=== PATIENT | female | born 1985 | race Caucasian/White ===

== ENCOUNTER 2016-08-19 15:56 | Outpatient (CLI) | payer OTHER ==
[~2016-08-19] VITALS: Ht 160 cm; Wt 70.0 kg
[~2016-08-19 15:56] MED LIST: CEPH-443 PO; PREN-39
[2016-08-19 16:01] VITALS: Ht 160 cm; Wt 70.0 kg
[2016-08-19 16:02] VITALS: BP 111/73; PULSE 90; RESP 18
--- NOTE | 2016-08-19 16:53 | RADRPT ---
PROCEDURE: US OB biophysical profile. CLINICAL INDICATION: decreased movements, tachycardia TECHNIQUE: Multiple sonographic images of the pelvis were obtained. The images were reviewed on a PACS workstation. COMPARISON: None FINDINGS: There is a single viable intrauterine gestation. Cardiac activity is present with 140 beats per min jessica. There is a vertex presentation. The placenta is posterior. There is no evidence of placental abruption. There is a normal amount of amniotic fluid with an CATALINA = 15.5 cm. Biophysical profile: movement 2/2 tone 2/2. breathing 2/2 CATALINA 2/2 Total 01/20 RPTAT: AA . IMPRESSION: Normal biophysical profile. . .Liu Gaming MD, MD Date Time Electronically viewed and signed by .Liu Gaming MD, MD on 08/19/2016 16:52 .S/
--- NOTE | 2016-08-19 17:14 | CONS ---
Date/Time of Note Date/Time of Note DATE: 08/19/16 TIME: 17:07 Consultation Date/Type/Reason Admit Date/Time Initial Consult Date 24 HR Interval Summary Free Text/Dictation August 19, 2016 OB triage consult This patient is 30 years old 5 para 2 2 living 2 who both her deliveries had by section. Her due date is September 02, 2016 which makes her 38 weeks and 0 days now She was sent due to tachycardia to be evaluated for possible distress On examination generally the patient is normal: her ear nose throat neck chest heart extremity all within normal limits Abdomen: is soft she has occasional contraction Her vital signs are within normal limits Blood pressure 111/73 pulse rate 90 respiration 18 temperature 98 point Monitoring : heart tracing is reactive with fairly good accelerations and variability and no decelerations Her biophysical profile was reported 8 of 8 her amniotic fluid index was 15.5 cm Detailed Summary Eyes: No discharge, No no complaints, No other, No pain, No redness, No visual change ENT: No bleeding, No congestion, No discharge, No dysphagia, No no complaints, No other, No pain, No sore throat Respiratory: No cough, No no complaints, No other, No pain, No pleuritic pain, No shortness of breath, No sputum, No wheezing Cardiovascular: No chest pain, No edema, No lightheadedness, No no complaints, No orthopenea, No other, No palpitations, No paroxysmal nocturnal dyspnea Gastrointestinal: No blood, No constipation, No decreased appetite, No diarrhea , No flatus, No nausea, No no complaints, No other, No pain, No passing stool, No vomiting Genitourinary: other (No vaginal discharge no bleeding), No bleeding, No discharge, No dysuria, No flank pain, No hematuria, No no complaints Musculoskeletal: No back pain, No bone/joint pain, No neck pain, No no complaints, No other, No restricted range of motion, No swelling Skin: No bruising, No erythema, No laceration, No no complaints, No other, No pruritis, No rash, No skin lesions Neurologic: other (Knee-jerk reflex are normal), No confusion, No dizziness, No focal-weakness, No headache, No no complaints , No seizure, No syncope Endocrine: No dry skin, No no complaints, No other, No polydypsia, No polyuria , No temp intolerance Lymphatic: No adenopathy, No lymphadema, No no complaints, No other, No tender nodes Additional Comments With these positive findings patient was discharged home to be seen in the office in 3 days and to repeat her NST in 3 days Exam/Review of Systems Vital Signs Vitals Vital Signs Date Time Temp Pulse Resp B/P Pulse Ox O2 Delivery O2 Flow Rate FiO2 08/19/16 16:02 98.4 90 18 111/73 HAYES CASTANO MD Aug 19, 2016 17:14 HAYES CASTANO MD Aug 19, 2016 17:14
--- NOTE | 2016-08-19 18:23 | TRIAGE ---
OB Triage Datetime Report Generated by CPN: 08/19/2016 18:23 Datetime: 08/19/2016 16:56 Maternal Assessment Level of Consciousness: Fully Conscious DTR's/Clonus: DTRs 1+ Headache: Denies Breath Sounds, Left: Clear and Equal Breath Sounds, Right: Clear and Equal Nausea/Vomiting: Denies RUQ Epigastric Pain: Denies Labor Evaluation Frequency: 145 Monitor Mode: External Duration (sec)2399: 40-50 Quality: Mild Pattern: Normal: <= 5 Contractions in 10 Minutes Resting Tone [place]: Relaxed Heart Rate FHR Baseline Rate: 140 Monitor Mode: External US Variability: Moderate 6-25 bpm Accelerations: 15X15 Decelerations: None Category: Category I Pain Assessment Pain Scale: 0 Pain Presence: None/Denies Pain Type: N/A Pain Goal: 3 Vaginal Exam Membrane Status: Intact Datetime: 08/19/2016 16:14 Maternal Assessment Level of Consciousness: Fully Conscious DTR's/Clonus: DTRs 1+ Headache: Denies Blurred Vision: No Respiratory Effort: Unlabored Breath Sounds, Left: Clear and Equal Breath Sounds, Right: Clear and Equal Nausea/Vomiting: Denies RUQ Epigastric Pain: Denies Facial Edema: None Labor Evaluation Frequency: NONE Resting Tone [place]: Relaxed Heart Rate FHR Baseline Rate: 140 Monitor Mode: External US Variability: Moderate 6-25 bpm Accelerations: 15X15 Decelerations: None Category: Category I Pain Assessment Pain Scale: 0 Pain Presence: None/Denies Pain Type: N/A Pain Goal: 3 Vaginal Exam Membrane Status: Intact Datetime: 08/19/2016 16:06 Stage of : OB Triage EGA: 38.0 Maternal Assessment Level of Consciousness: Fully Conscious DTR's/Clonus: DTRs 2+; No Clonus Headache: Denies Blurred Vision: No Respiratory Effort: Unlabored; Regular Rhythm; Equal Expansion Breath Sounds, Left: Clear and Equal Breath Sounds, Right: Clear and Equal Nausea/Vomiting: Denies RUQ Epigastric Pain: Denies Lower Extremities Edema: None Degree: None Upper Extremities Edema: None Degree: None Facial Edema: None Temperature Route: Axillary Fall Risk Assessment History of Falling: (0) No Secondary Diagnosis: (0) No Ambulatory Aid: (0) Bedrest/Nurse Assist IV Therapy: (0) No Gait: (0) Normal/Bedrest/Immobile Mental Status: (0) Oriented to Own Ability Fall Score: 0 Fall Risk Score Definition: No Risk: No action required Datetime: 08/19/2016 15:52 Time of Arrival: 08/19/2016 15:52 Arrived By: Ambulatory Arrived From: Office Chief Complaint: PT CAME IN FROM [facility] OFFICE TO BE MONITOR FOR TACHYCARDIA Movement: Present Contractions: Denies/Absent Rupture of Membranes: Denies Vaginal Discharge: Denies Recent Sexual Intercouse: Denies Abdominal Trauma: Not Applicable Additional Patient Complaints: NONE Time Provider Notified: 08/19/2016 16:00 Provider Notified: MARISA Initial Plan: NST AND BPKamar
== END 2016-08-19 17:05 | disposition home or self-care (01) ==
LOC: OBT 15:56 → L-D 15:56 → OBT 17:05
PROVIDERS: ATTEND Obstetrics & Gynecology
DX: O47.1 False labor at or after 37 completed weeks of gestation (principal); Z3A.38 38 weeks gestation of pregnancy
CPT/HCPCS: 76818; Z7500; G0463

== ENCOUNTER 2016-09-01 19:31 | Inpatient (IN) | payer OTHER ==
[~2016-09-01] VITALS: Ht 162.6 cm; Wt 73.9 kg
[~2016-09-01 19:31] MED LIST changes: -CEPH-443 PO
[2016-09-01 19:57] VITALS: Ht 162.6 cm; Wt 73.9 kg
[2016-09-01 19:58] VITALS: BP 103/67; PULSE 81; RESP 16
[2016-09-01] MEDS ORDERED: FOLI-49 PO (19:58)
[2016-09-01] MEDS ORDERED: AMPICILLIN 2 GM/NS (PMX) 100 ML IVPB ONE (20:30)
[2016-09-01] MEDS: LACTATED RINGER'S 1,000 ML IV SCH (20:34)
[2016-09-01] MEDS ORDERED: OXYTOCIN 30 UNITS/LR 500 ML IV PRN (21:00)
[2016-09-01] MEDS ORDERED: OXYTOCIN 30 UNITS/LR 500 ML IV SCH (21:00)
[2016-09-01] MEDS ORDERED: CARBOPROST 250 MCG INJ IM PRN (21:00)
[2016-09-01] MEDS ORDERED: MISOPROSTOL 200 MCG TAB PR PRN (21:00)
[2016-09-01] MEDS ORDERED: METHYLERGONOVINE 0.2 MG INJ IM PRN (21:00)
[2016-09-01] MEDS ORDERED: CEFAZOLIN 2 GM/50 ML (PMX) 50 ML IV SCH (21:00)
[2016-09-01 21:14] LABS: ADD SCAN DIFF NO
[2016-09-01 21:16] LABS: BASOPHILS % 0.3 % (0.0-2.0); EOSINOPHILS # 0.4 10^3/ul (0.0-0.5); EOSINOPHILS % 5.2 % (0.0-7.0); HEMATOCRIT 34.6 % (37.0-47.0); HEMOGLOBIN 11.3 g/dl (12.0-16.0); LYMPHOCYTES # 1.5 10^3/ul (0.8-2.9); LYMPHOCYTES % 20.4 % (15.0-51.0); MEAN CORPUSCULAR HEMOGLOBIN 29.1 pg (29.0-33.0); MEAN CORPUSCULAR HGB CONC 32.7 g/dl (32.0-37.0); MEAN CORPUSCULAR VOLUME 89.2 fl (82.0-101.0); MEAN PLATELET VOLUME 11.4 fl (7.4-10.4); MONOCYTE # 0.8 10^3/ul (0.3-0.9); MONOCYTES % 11.2 % (0.0-11.0); NEUTROPHIL # 4.6 10^3/ul (1.6-7.5); NEUTROPHILS % 62.5 % (39.0-77.0); PLATELET COUNT 227 10^3/UL (140-415); RED BLOOD COUNT 3.88 10^6/ul (4.20-5.40); RED CELL DISTRIBUTION WIDTH 13.2 % (11.5-14.5); WHITE BLOOD COUNT 7.3 10^3/ul (4.8-10.8)
[2016-09-01 21:19] LABS: INR 0.92; PROTIME 12.4 Sec (12.2-14.2)
[2016-09-01 21:20] LABS: PARTIAL THROMBOPLASTIN TIME 26.1 Sec (25.0-35.0)
--- NOTE | 2016-09-01 21:59 | RADRPT ---
PROCEDURE: OB ultrasound for biophysical profile CLINICAL INDICATION: Biophysical profile. . TECHNIQUE: Multiple sonographic images of the pelvis were obtained. Transabdominal view of the gr avid uterus are available for review. The images were reviewed on a PACS workstation. COMPARISON: 08/19/2016 FINDINGS: Single intrauterine gestation. Presentation: Oblique breech maternal right. Partially visualized placenta: Posterior breathing movement = 2/2 tone = 2/2 motion = 2/2 CATALINA = 2/2 CATALINA = 18.3 cm heart rate: 146 beats per minute IMPRESSION: Single intrauterine gestation. Biophysical profile 01/20 Oblique of breech presentation. RPTAT: AADD .Reji Ibarra MD, MD Date Time Electronically viewed and signed by .Reji Ibarra MD, on 09/01/2016 21:58 .B/
--- NOTE | 2016-09-01 22:21 | TRIAGE ---
OB Triage Datetime Report Generated by CPN: 09/01/2016 22:21 Datetime: 09/01/2016 21:41 Stage of : Labor Assessment Type: Admission Assessment Vaginal Bleeding: None Maternal Assessment Level of Consciousness: Fully Conscious DTR's/Clonus: DTRs 2+; No Clonus Headache: Denies Blurred Vision: No Respiratory Effort: Unlabored; Regular Rhythm; Equal Expansion Breath Sounds, Left: Clear and Equal Breath Sounds, Right: Clear and Equal Nausea/Vomiting: Denies RUQ Epigastric Pain: Denies Lower Extremities Edema: None Degree: None Upper Extremities Edema: None Degree: None Facial Edema: None Fall Risk Assessment History of Falling: (0) No Secondary Diagnosis: (0) No Ambulatory Aid: (0) Bedrest/Nurse Assist IV Therapy: (20) Yes Gait: (0) Normal/Bedrest/Immobile Mental Status: (0) Oriented to Own Ability Fall Score: 20 Fall Risk Score Definition: No Risk: No action required Labor Evaluation Frequency: 0 Resting Tone [place]: Relaxed Heart Rate FHR Baseline Rate: 135 Variability: Moderate 6-25 bpm Accelerations: 15X15 Decelerations: None Category: Category I Pain Assessment Pain Scale: 1 Pain Presence: Intermittent Pain Type: Cramping Pain Location: Abdomen Pain Goal: 0 Datetime: 09/01/2016 20:49 Comments: DR MARISA AT BEDSIDE. Datetime: 09/01/2016 20:47 Comments: US TECH AT BEDSIDE FOR PRESENTATION. Datetime: 09/01/2016 20:37 Stage of : OB Triage Datetime: 09/01/2016 20:25 Stage of : OB Triage Datetime: 09/01/2016 19:50 Vaginal Exam Dilatation (cms): 1.5 Effacement (%): 60 Station: -4 Exam By: ADRIANA VIDAL Vaginal Bleeding: None Cervix, Consistency: Soft Cervix, Position: Posterior Presentation 'A': Unable to Assess Datetime: 09/01/2016 19:41 Assessment Type: Triage Maternal Assessment Level of Consciousness: Fully Conscious Headache: Denies Blurred Vision: No Respiratory Effort: Unlabored; Regular Rhythm; Equal Expansion Nausea/Vomiting: Denies RUQ Epigastric Pain: Denies Facial Edema: None Fall Risk Assessment History of Falling: (0) No Secondary Diagnosis: (0) No Ambulatory Aid: (0) Bedrest/Nurse Assist IV Therapy: (0) No Gait: (0) Normal/Bedrest/Immobile Mental Status: (0) Oriented to Own Ability Fall Score: 0 Fall Risk Score Definition: No Risk: No action required Datetime: 09/01/2016 19:39 Time of Arrival: 09/01/2016 19:30 EGA: 39.6 Arrived By: Ambulatory Arrived From: Home Chief Complaint: UC'S SINCE 18:00 Movement: Present Contractions: Irregular Contractions: UNSURE Rupture of Membranes: Denies Vaginal Bleeding: None Vaginal Discharge: Present Recent Sexual Intercouse: Denies Abdominal Trauma: Not Applicable Patient Complaints: Contractions Time Provider Notified: 09/01/2016 19:55 Provider Notified: MARISA Initial Plan: EFM,SVE, CALL OB Datetime: 08/19/2016 16:06 EGA: 38.0 Fall Score: 0 Fall Risk Score Definition: No Risk: No action required
[2016-09-01] MEDS ORDERED: morphine SULFATE/PF (10 MG/10 ML) INJ ONE (22:47)
[2016-09-01] MEDS ORDERED: PHENYLephrine (100 MCG/ML) 5ML SYG ONE ×3 (22:49→23:35)
--- NOTE | 2016-09-01 23:00 | HP ---
Date/Time of Note Date/Time of Note DATE: 09/01/16 TIME: 22:53 OB - History Hx of Present Free Text/Dictation 30 y.o A2(sab) at 39w6d came in c/o uerine contractions known to be transverse lie which has been confirmed by u/s prepared for primary csarean sections Chief Complaint: uterine contractions Estimated Due Date: Sep 02, 2016 : 4 Para: 1 Spontaneous : 2 Therapeutic : 0 Care: Good Care Ultrasounds: Normal mid trimester US Obstetrical Complications: None Medical Complications: None Past Family/Social History * Past Medical, Surgical, Family and Obstetric Histories reviewed from chart. Blood Type: B+ Rubella: immune RPR/VDRL: Negative GBS Status: Positive HBsAG: Negative OB Admission Exam Vital Signs Vital Signs Vital Signs Date Time Temp Pulse Resp B/P Pulse Ox O2 Delivery O2 Flow Rate FiO2 09/01/16 19:58 98.0 81 16 103/67 Room Air Physical Exam HEENT: WNL Heart: Rhythm Normal Lungs: Clear, Equal Abdomen: WNL Extremities: Normal Reflexes: Normal Cervical Dilatation: 1cm Effacement: 25% Station: Ballotable Membranes: Intact Heart Rate: 140's Accelerations: Accelerations Present Decelerations: No Decelerations Varibility: Moderate Contractions on Admission: >10 Minutes Apart Intensity: Mild Last 72 hours Lab Results CBC & BMP 09/01/16 20:30 OB Assessment/Plan Reason for admission: other (malpresentation) Other Assessment: IUP 39w6d transverse lie in early labor Plan: Section JACLYN CUNNINGHAM MD Sep 01, 2016 23:00
[2016-09-01] MEDS ORDERED: ONDANSETRON 4 MG INJ ONE (23:03)
[2016-09-01] MEDS ORDERED: DIPHENHYDRAMINE 50 MG INJ IV PRN ×2 (23:30)
[2016-09-01] MEDS ORDERED: METOCLOPRAMIDE 10 MG INJ IV PRN (23:30)
[2016-09-01] MEDS ORDERED: FENTAnyl 50 MCG/ML VIAL IV PRN ×2 (23:30)
[2016-09-01] MEDS ORDERED: MEPERIDINE 25 MG INJ IV PRN (23:30)
[2016-09-01] MEDS ORDERED: ONDANSETRON 4 MG INJ IV PRN ×2 (23:30)
[2016-09-01] MEDS ORDERED: HYDROmorphONE 1 MG/ML SYG IV PRN ×2 (23:30)
[2016-09-01] MEDS ORDERED: morphine (1 MG/ML) 10ML SYRINGE IV PRN ×2 (23:30)
[2016-09-01] MEDS ORDERED: HYDROmorphONE (0.2 MG/ML) 10ML SYG IV PRN ×2 (23:30)
[2016-09-01] MEDS ORDERED: NALOXONE (0.4 MG/ML) INJ IV PRN (23:30)
[2016-09-02] MEDS: KETOROLAC 30 MG INJ IV PRN ×4 (01:20→18:34)
--- NOTE | 2016-09-02 02:39 | DELSUM ---
Delivery Summary A-C Datetime Report Generated by CPN: 09/02/2016 02:38 DELIVERY PERSONNEL Hand Binder Cutter: [place], Lorna Idalmis MATERNAL INFORMATION Delivery Anesthesia: Spinal Medications in Delivery: SEE ANESTHESIA Estimated Blood Loss (ml): 600 Placenta Cultured: No Maternal Complications: None LABOR SUMMARY EDC: 09/02/2016 00:00 No. Babies in Womb: 1 Attempted: No Labor Anesthesia: None LABOR INFORMATION Reason for Induction: Not Applicable Onset of Labor: 09/01/2016 17:00 Oxytocin: N/A Group B Beta Strep: Positive Group B Beta Strep: Positive Antibiotics # of Doses: 2 Antibiotics Time of Last Dose: 09/01/2016 23:00 Steroids Given: None Reason Steroids Not Administered: Not Applicable MEMBRANES Membranes Rupture Method: Artificial Rupture of Membranes: 09/01/2016 23:13 Length of Rupture (hr): 0.02 Amniotic Fluid Color: Clear Amniotic Fluid Amount: Moderate Amniotic Fluid Odor: Normal STAGES OF LABOR Stage 3 hr: 0 Stage 3 min: 1 Total Time in Labor hr: 6 Total Time in Labor min: 15 CSECTION DELIVERY Primary Indication: Breech Presentation CSection Urgency: Non Elective CSection Incidence: Primary Labor: Labor Elective: Nonelective CSection Incision: Lower Uterine Transverse BABY A INFORMATION Delivery Date/Time: 09/01/2016 23:14 Method of Delivery: Method of Delivery: Born in Route : No : N/A Forceps: N/A Vacuum Extraction: N/A Shoulder Dystocia : N/A SHOULDER DYSTOCIA BABY A Delivery Date/Time: 09/01/2016 23:14 PRESENTATION/POSITION BABY A Presentation: Breech Cephalic Presentation: N/A Breech Presentation: Double Footling PLACENTA INFORMATION BABY A Placenta Delivery Time : 09/01/2016 23:15 Placenta Method of Delivery: Manual Removal Placenta Status: Delivered SCORES BABY A Heart Rate 1 min: >100 bpm Resp Effort 1 min: Good Cry Reflex Irritability 1 min: Cough/Sneeze/Pulls Away Muscle Tone 1 min: Active Motion Color 1 min: Blue/Pale Resuscitation Effort 1 min: Tactile Stimulation SCORE 1 MIN: 8 Heart Rate 5 min: >100 bpm Resp Effort 5 min: Good Cry Reflex Irritability 5 min: Cough/Sneeze/Pulls Away Muscle Tone 5 min: Active Motion Color 5 min: Body [place], Extremit Blue Resuscitation Effort 5 min: Tactile Stimulation SCORE 5 MIN: 9 INFANT INFORMATION BABY A Gestational Age at Delivery: 39.6 Gestational Status: Full Term- 39- 40.6 Weeks Outcome : Liveborn Condition : Stable Infant Sex: Female IDENTIFICATION/MEDS BABY A ID Band Number: [id number] ID Band Location: Right Leg; Left Arm Sensor Applied: Yes Sensor Number: [id number] Sensor Location : Cord Clamp Vitamin K Given : Not Given Erythromycin Given: Not Given WEIGHT/LENGTH BABY A Infant Birthweight (gm): 3430 Weight (lb): 7 Infant Weight (oz): 9 Length (in): 20.00 Infant Length (cm): 50.80 CORD INFORMATION BABY A No. Cord Vessels: 3 Nuchal Cord : Around Neck x1, Loose Cord Blood Taken: Yes Infant Suction: Mouth; Nose ASSESSMENT BABY A Complications: None Physical Findings at Delivery: Within Normal Limits Infant Respirations: Appears Normal Instrument Repair Technician/ALS Called : No Care By: NICU Transferred To: Remains with Mother
--- NOTE | 2016-09-02 02:39 | DELSUM ---
Delivery Summary A-C Datetime Report Generated by CPN: 09/02/2016 02:39 DELIVERY PERSONNEL Hamper Maker: [place], Lorna Idalmis MATERNAL INFORMATION Delivery Anesthesia: Spinal Medications in Delivery: SEE ANESTHESIA Estimated Blood Loss (ml): 600 Placenta Cultured: No Maternal Complications: None LABOR SUMMARY EDC: 09/02/2016 00:00 No. Babies in Womb: 1 Attempted: No Labor Anesthesia: None LABOR INFORMATION Reason for Induction: Not Applicable Onset of Labor: 09/01/2016 17:00 Oxytocin: N/A Group B Beta Strep: Positive Group B Beta Strep: Positive Antibiotics # of Doses: 2 Antibiotics Time of Last Dose: 09/01/2016 23:00 Steroids Given: None Reason Steroids Not Administered: Not Applicable MEMBRANES Membranes Rupture Method: Artificial Rupture of Membranes: 09/01/2016 23:13 Amniotic Fluid Color: Clear Amniotic Fluid Amount: Moderate Amniotic Fluid Odor: Normal CSECTION DELIVERY Primary Indication: Breech Presentation CSection Urgency: Non Elective CSection Incidence: Primary Labor: Labor Elective: Nonelective CSection Incision: Lower Uterine Transverse BABY A INFORMATION Delivery Date/Time: 09/01/2016 23:14 Method of Delivery: Method of Delivery: Born in Route : No : N/A Forceps: N/A Vacuum Extraction: N/A Shoulder Dystocia : N/A SHOULDER DYSTOCIA BABY A Infant Delivery Date/Time: 09/01/2016 23:14 PRESENTATION/POSITION BABY A Presentation: Breech Cephalic Presentation: N/A Breech Presentation: Double Footling PLACENTA INFORMATION BABY A Placenta Delivery Time : 09/01/2016 23:15 Placenta Method of Delivery: Manual Removal Placenta Status: Delivered SCORES BABY A Heart Rate 1 min: >100 bpm Resp Effort 1 min: Good Cry Reflex Irritability 1 min: Cough/Sneeze/Pulls Away Muscle Tone 1 min: Active Motion Color 1 min: Blue/Pale Resuscitation Effort 1 min: Tactile Stimulation Heart Rate 5 min: >100 bpm Resp Effort 5 min: Good Cry Reflex Irritability 5 min: Cough/Sneeze/Pulls Away Muscle Tone 5 min: Active Motion Color 5 min: Body [place], Extremit Blue Resuscitation Effort 5 min: Tactile Stimulation INFORMATION BABY A Gestational Age at Delivery: 39.6 Infant Outcome : Liveborn Condition : Stable Sex: Female IDENTIFICATION/MEDS BABY A ID Band Number: [id number] ID Band Location: Right Leg; Left Arm Sensor Applied: Yes Sensor Number: [id number] Sensor Location : Cord Clamp Vitamin K Given : Not Given Erythromycin Given: Not Given WEIGHT/LENGTH BABY A Infant Birthweight (gm): 3430 Infant Length (in): 20.00 CORD INFORMATION BABY A No. Cord Vessels: 3 Nuchal Cord : Around Neck x1, Loose Cord Blood Taken: Yes Suction: Mouth; Nose ASSESSMENT BABY A Complications: None Physical Findings at Delivery: Within Normal Limits Infant Respirations: Appears Normal Patient Service Representative/ALS Called : No Infant Care By: NICU Transferred To: Remains with Mother
[2016-09-02 02:40] VITALS: BP 114/65; PULSE 59; RESP 18
[2016-09-02] MEDS ORDERED: METHYLERGONOVINE 0.2 MG INJ IM PRN (03:00)
[2016-09-02] MEDS ORDERED: ZOLPIDEM 5 MG TAB PO PRN (03:00)
[2016-09-02] MEDS ORDERED: ONDANSETRON 4 MG INJ IV PRN (03:00)
[2016-09-02] MEDS ORDERED: MISOPROSTOL 200 MCG TAB PR PRN (03:00)
[2016-09-02] MEDS ORDERED: OXYCODONE/ACETAMINOPHEN (5/325) TAB PO PRN (03:00)
[2016-09-02] MEDS ORDERED: CARBOPROST 250 MCG INJ IM PRN (03:00)
[2016-09-02] MEDS ORDERED: LANOLIN 7 GM TUBE TOP PRN (03:00)
[2016-09-02] MEDS ORDERED: OXYTOCIN 30 UNITS/LR 500 ML IV PRN (03:00)
[2016-09-02] MEDS ORDERED: DIPHENHYDRAMINE 50 MG INJ IV PRN (03:00)
[2016-09-02 04:30] VITALS: BP 100/57; PULSE 69; RESP 18
[2016-09-02] MEDS: LACTATED RINGER'S 1,000 ML IV SCH ×2 (04:30→12:04)
[2016-09-02] MEDS: IBUPROFEN 600 MG TAB PO SCH ×3 (06:00→17:42)
[2016-09-02 07:35] VITALS: BP 104/60; PULSE 63; RESP 16
[2016-09-02] MEDS: SENNA/DOCUSATE NA (8.6MG/50MG) TAB PO SCH ×2 (09:09→21:07)
[2016-09-02 11:55] VITALS: BP 93/55; PULSE 71; RESP 17
--- NOTE | 2016-09-02 13:59 | PN ---
Date/Time of Note Date/Time of Note DATE: 09/02/16 TIME: 13:57 OB Subjective Subjective Subjective no c/o still have canales cath OB Objective Objective Objective vss afebrile abdomen soft wound dry lochia min ext no tenderness OB Assessment/Plan Other Assessment: stable post c-s #1 Other plan: as ordered JACLYN CUNNINGHAM MD Sep 02, 2016 13:59
--- NOTE | 2016-09-02 14:51 | OPR ---
DATE OF OPERATION: 09/01/2016 PREOPERATIVE DIAGNOSIS: 39 weeks 6 days with transverse lie versus oblique lie. POSTOPERATIVE DIAGNOSIS: Double footling. PROCEDURE: Primary low transverse section. SURGEON: Edelmira Carlson MD IT CONSULTING DIRECTOR: Megan Hooks MD ANESTHESIA: Spinal. ANESTHESIOLOGIST: Srinath Robert MD ESTIMATED BLOOD LOSS: Approximately 600 mL. DESCRIPTION OF PROCEDURE: Under proper induction of spinal anesthesia, the patient was placed in th e frog position. Downey catheter was introduced into the bladder under sterile condition, reposition ed to supine. Abdominal wall was prepped and draped in usual aseptic manner. A Pfannenstiel incision was made. The incision was carried down through the subcutaneous tissue to the anterior rectus fascia, which was incised transversely the length of the incision. Fascial flap was created and the 2 rectus muscles split in midline. Peritoneal cavity was entered. Low portion of uterus was exposed. Bladder blade was introduced. A transverse incision was made above the [place] rovesical reflection. Incision was carried down layer by layer and reached the amniotic membrane, r uptured, revealed clear amniotic fluid, a large amount. The 2 feet were right there, so grabbed the 2 feet and delivered by assisted breech extraction. A normal female was born, and there was x1 nuchal cord noted, which was tight. Delayed clamping was done and the cord was clamped and cut, handed to the respiratory care personnel for further care. Cord blood was obtained. The placenta was removed manually and uterus was arcuate form. The placenta was removed and the uterus was exter iorized and completely explored inside the cavity, it was noted that the uterus was arcuate form. I ncision was closed with a #1 chromic catgut in continuous manner, second layer was also continuous w ith 0 chromic catgut including uterine serosa. No bleeder was noted. Uterus was relocated into abd ominal cavity after all the blood was removed from both gutters after irrigation. The uterine incis ional site was rechecked, which was intact. Sponge count taken which was correct. Parietal peritoneum was closed using 0 chromic catgut in continuous manner, muscle closed with 0 chr omic catgut in continuous manner. The fascia closed with #1 Vicryl in continuous manner in 2 segmen ts. Subcutaneous tissue irrigated. This layer was approximated with 2-0 plain in continuous manner and skin closed with a 3-0 Monocryl in subcuticular manner. Steri-Strips applied. Pressure dressi ng applied. The patient withstood the procedure and was sent to the recovery room in good condition . Dictated By: EDELMIRA TAYLOR/SELVIN Conf#: [id number] DID#: [id number]
[2016-09-02 15:47] VITALS: BP 85/46; PULSE 70; RESP 20
[2016-09-02 19:30] VITALS: PULSE 71; RESP 18
[2016-09-02] MEDS: OXYCODONE/ACETAMINOPHEN (5/325) TAB PO PRN (22:56)
[2016-09-03] MEDS ORDERED: IBUPROFEN 600 MG TAB PO SCH
[2016-09-03] MEDS: IBUPROFEN 600 MG TAB PO SCH ×5 (00:06→23:40)
[2016-09-03] MEDS: OXYCODONE/ACETAMINOPHEN (5/325) TAB PO PRN ×3 (03:22→22:12)
[2016-09-03 03:44] VITALS: BP 110/59; PULSE 69; RESP 18
[2016-09-03 08:15] VITALS: BP 81/58; PULSE 58; RESP 17
[2016-09-03 08:24] LABS: ADD SCAN DIFF NO
[2016-09-03 08:28] LABS: BASOPHILS % 0.2 % (0.0-2.0); EOSINOPHILS # 0.4 10^3/ul (0.0-0.5); EOSINOPHILS % 4.1 % (0.0-7.0); HEMATOCRIT 32.4 % (37.0-47.0); HEMOGLOBIN 10.2 g/dl (12.0-16.0); LYMPHOCYTES # 1.4 10^3/ul (0.8-2.9); MEAN CORPUSCULAR HEMOGLOBIN 28.3 pg (29.0-33.0); MEAN CORPUSCULAR HGB CONC 31.5 g/dl (32.0-37.0); MEAN PLATELET VOLUME 10.6 fl (7.4-10.4); MONOCYTE # 0.7 10^3/ul (0.3-0.9); MONOCYTES % 7.6 % (0.0-11.0); NEUTROPHIL # 6.4 10^3/ul (1.6-7.5); NEUTROPHILS % 71.4 % (39.0-77.0); PLATELET COUNT 198 10^3/UL (140-415); RED CELL DISTRIBUTION WIDTH 13.4 % (11.5-14.5)
[2016-09-03] MEDS: SENNA/DOCUSATE NA (8.6MG/50MG) TAB PO SCH ×2 (09:40→21:59)
--- NOTE | 2016-09-03 15:09 | PN ---
Date/Time of Note Date/Time of Note DATE: 09/03/16 TIME: 15:07 OB Subjective Subjective Subjective no c/o doing ok OB Objective Objective Objective vss afebrile abdomen soft wound dry [id number] min ext neg for tenderness OB Assessment/Plan Other Assessment: stable Other plan: as ordered JACLYN CUNNINGHAM MD Sep 03, 2016 15:09
[2016-09-03 16:16] VITALS: BP 125/78; PULSE 69; RESP 16
[2016-09-03 19:45] VITALS: BP 90/56; PULSE 62; RESP 18
[2016-09-04 04:30] VITALS: BP 96/55; PULSE 66; RESP 18
[2016-09-04] MEDS: IBUPROFEN 600 MG TAB PO SCH ×3 (05:43→17:18)
[2016-09-04 08:07] VITALS: BP 86/50; PULSE 62; RESP 17
[2016-09-04] MEDS: OXYCODONE/ACETAMINOPHEN (5/325) TAB PO PRN ×2 (08:07→15:45)
[2016-09-04] MEDS: SENNA/DOCUSATE NA (8.6MG/50MG) TAB PO SCH (09:38)
[2016-09-04 16:35] VITALS: BP 89/55; PULSE 68; RESP 16
--- NOTE | 2016-09-04 17:33 | PD.PPDC ---
SETTER JUICE PACKAGING MACHINES Discharge Instruction Diagnosis Final Diagnosis: s/p primary section Condition Patient Condition: Stable Diet Diet: Resume Regular Diet Activity/Restrictions Activity: May Shower Restrictions: No Exercising No Lifting No Sexual Activity Nothing in the Vagina No [place] No Tampons, douche Wound/Drain Care Instructions Wound/Drain Care Instructions: Wash with soap and water Keep clean and dry Follow-up Follow-up with Physician: 2, Week/Weeks Return to clinic for AIR BOX TESTER Instructions: Fever greater than 101 Chills Worsening abdominal pain Excessive Vaginal Bleeding More than 2 pads per hour Unable to tolerate diet OB Instructions: Breast Tenderness Depression Blurried Vision Headache Surgical Instructions: Incisional Drainage Incisional Redness JACLYN CUNNINGHAM MD Sep 04, 2016 17:33
--- NOTE | 2016-09-04 17:36 | DS ---
Date/Time of Note Date/Time of Note DATE: 09/04/16 TIME: 17:34 Obstetrical Discharge Record Final Diagnosis Final Diagnosis: Term delivered Other Final Diagnosis transverse lie Section Section: Primary Complications Other (transverse lie) Condition on Discharge Physical Assessment Last Vitals: vss afebrile Voiding: Yes Bowel Movement: Yes Breast: Soft, non-tender Fundus: Firm Abdomen and Incision: soft wound dry Calf Tenderness: No Patient Condition: Stable JACLYN CUNNINGHAM MD Sep 04, 2016 17:36
[2016-09-05] MEDS ORDERED: DIPHTH/TET/ACEL PERTUSS (ADULT) 0.5 ML VIAL IM* ONE (09:00)
== END 2016-09-04 18:30 | disposition home or self-care (01) | DRG 766 ==
LOC: L-D 19:31 → OBT 19:31 → L-D 20:50 → PP1 09-02 02:40
PROVIDERS: ADMIT Obstetrics & Gynecology; ATTEND Obstetrics & Gynecology
PROC: 10D00Z1 Extraction of Products of Conception, Low, Open Approach (ICD-10-PCS; principal; 2016-09-01 22:00)
DX: O32.8XX0 Maternal care for other malpresentation of fetus, not applicable or unspecified (principal); Z37.0 Single live birth; Z3A.39 39 weeks gestation of pregnancy
CPT/HCPCS: 36415; 76818; 85025; 85610; 85730; 86592; 86850; 86900; 86901; 87340; 96360; 99464; G0463; J0290; J0690; J1885; J2210; J2274; J2370; J2405; J2590; J7120

== ENCOUNTER 2018-06-05 05:10 | Emergency (ER) | END 2018-06-05 07:04 | disposition home or self-care (01) ==